=== PATIENT | male | born 1935 | race Caucasian/White ===

== ENCOUNTER 2021-09-22 23:36 | Emergency (ER) | payer OTHER ==
[~2021-09-22] VITALS: Ht 165.1 cm; Wt 68.0 kg
[2021-09-22 23:45] VITALS: BP_SYST 153
[2021-09-23] MEDS ORDERED: PROPOFOL 200MG/ 20ML VIAL (DIPRIVAN) IV ONE (02:30)
[2021-09-23 04:37] VITALS: BP_SYST 139
== END 2021-09-23 04:49 | disposition home or self-care (01) ==
LOC: SED 23:36
DX: S43.005A Unspecified dislocation of left shoulder joint, initial encounter (principal); W18.39XA Other fall on same level, initial encounter; Y93.89 Activity, other specified; Y92.89 Other specified places as the place of occurrence of the external cause; Y99.8 Other external cause status
CPT/HCPCS: 99284; 23650; 73020; 73030; J2704